=== PATIENT | male | born 1970 | race American Indian/Alaskan Native ===

== ENCOUNTER 2021-07-06 12:35 | Emergency (ER) | payer OTHER ==
[2021-07-06 13:11] VITALS: BP 174/99
[2021-07-06] MEDS ORDERED: SODIUM CHLORIDE 0.9% 1000 ML 1,000 ML IV ONE (13:42)
[2021-07-06] MEDS ORDERED: INSULIN REGULAR, HUMAN 100 UNITS/1 ML IV ONE ×2 (13:43→15:47)
[2021-07-06 14:59] LABS: Basophils # (Auto) 0.1 K/mm3 (0.0-0.1); Eosinophils # (Auto) 0.1 K/mm3 (0.0-0.4); Eosinophils % (Auto) 2.3 % (0.0-4.3); Hematocrit 42.2 % (35.5-45.6); Hemoglobin 13.9 gm/dl (11.8-15.2); Lymphocytes # (Auto) 1.5 K/mm3 (1.2-5.4); Mean Corpuscular HGB Conc 33 % (32-34); Mean Corpuscular Volume 86 fl (84-94); Monocytes # (Auto) 0.4 K/mm3 (0.0-0.8); Monocytes % (Auto) 7.9 % (0.0-7.3); Platelet Count 268 K/mm3 (140-440); Red Blood Count 4.92 M/mm3 (3.65-5.03)
[2021-07-06 15:16] LABS: Albumin 3.8 g/dL (3.9-5); Calcium 8.9 mg/dL (8.4-10.2)
--- NOTE | 2021-07-06 15:51 | Event Note ---
ED Screening Note ED Screening Note: Patient sent from his primary care doctor for elevated blood glucose Patient admits to history of diabetes and states he has been out of his Metformin for 2 days He also reports some dizziness He denies chest pain or shortness of breath No urinary symptoms per patient This initial assessment/diagnostic orders/clinical plan/treatment(s) is/are subject to change based on patients health status, clinical progression and re- assessment by fellow clinical providers in the ED. Further treatment and workup at subsequent clinical providers discretion. Patient/guardian urged not to elope from the ED as their condition may be serious if not clinically assessed and managed. Initial orders include: Labs Insulin Fluids EKG
[2021-07-06] MEDS ORDERED: LACTATED RINGERS 1,000 ML IV ONE (16:34)
--- NOTE | 2021-07-06 16:35 | Emergency Department Report ---
ED General Adult HPI - General Chief complaint: Hyperglycemia Stated complaint: HIGH BLOOD SUGAR PUI?: No Time Seen by Provider: 07/06/21 15:50 Source: patient, RN notes reviewed Mode of arrival: Ambulatory Limitations: No Limitations - History of Present Illness Initial comments: The patient was evaluated in the emergency department for symptoms described in the history of present illness. He/she was evaluated in the context of the global COVID-19 pandemic, which necessitated consideration that the patient might be at risk for infection with the virus that causes COVID-19. Institutional protocols and algorithms that pertain to the evaluation of patients at risk for COVID-19 are in a state of rapid change based on infor mation released by regulatory bodies including the CDC and federal and state organizations. These policies and algorithms were followed during the patient's care in the emergency department. Please note that these policies, procedures and recommendations changed on a rapid basis. Primary CARE doctor: Dr. Mcclain The patient is a 50-year-old gentleman with a history of hypertension and diabetes, currently maintained on amlodipine and Metformin. He ran out of his Metformin a few days ago. He also reports recently indulging in consumption of sweetened drinks. He saw his outpatient primary care doctor for complaint of weakness, and polydipsia, and was found to have high blood sugar. He was referred to the emergency room. He reports that he takes Metformin but he does not know what dose he gets. He denies headache, neck pain, chest pain, abdominal pain, shortness of breath dysuria testicular pain. He does endorse urinary frequency. No cough. He complains of generalized weakness. He denies ataxia and unsteady gait -: Gradual Consistency: constant Improves with: rest Worsens with: movement - Related Data Previous Rx's Medication Instructions Recorded Last Taken Type metFORMIN [Glucophage] 500 mg PO BID #60 tab 07/06/21 Unknown Rx Allergies Allergy/AdvReac Type Severity Reaction Status Date / Time No Known Allergies Allergy Unverified 07/06/21 13:03 ED Review of Systems ROS: Stated complaint: HIGH BLOOD SUGAR Other details as noted in HPI Constitutional: malaise, weakness. denies: fever Eyes: denies: eye discharge, vision change ENT: denies: epistaxis Respiratory: denies: cough Cardiovascular: denies: chest pain Gastrointestinal: denies: abdominal pain, vomiting, diarrhea Genitourinary: frequency. denies: dysuria Neurological: weakness. denies: headache ED Past Medical Hx - Past Medical History Hx Hypertension: Yes Hx Diabetes: Yes - Surgical History Additional Surgical History: EYE - Medications Home Medications: Home Medications Medication Instructions Recorded Confirmed Last Taken Type metFORMIN [Glucophage] 500 mg PO BID #60 tab 07/06/21 Unknown Rx ED Physical Exam - General Limitations: No Limitations General appearance: alert, in no apparent distress - Head Head exam: Present: atraumatic, normocephalic - Eye Eye exam: Present: normal appearance, PERRL, EOMI, other (Visual acuity intact to finger counting, color perception, reading at a close distance). Absent: nystagmus - ENT ENT exam: Present: normal exam, normal orophraynx, mucous membranes moist, normal external ear exam - Neck Neck exam: Present: normal inspection, full ROM. Absent: tenderness, meningismus - Respiratory Respiratory exam: Present: normal lung sounds bilaterally. Absent: respiratory distress, wheezes, rales, rhonchi, stridor, decreased breath sounds - Cardiovascular Cardiovascular Exam: Present: regular rate, normal rhythm, normal heart sounds. Absent: bradycardia, tachycardia, irregular rhythm, systolic murmur, diastolic murmur, rubs, gallop - GI/Abdominal GI/Abdominal exam: Present: soft. Absent: distended, tenderness, guarding, rebound, rigid, pulsatile mass - Rectal Rectal exam: Present: deferred - Extremities Exam Extremities exam: Present: normal inspection, full ROM, other (2+ pulses noted in the bilateral upper and lower extremities. There is no palpable cord. negative Homans sign. Muscular compartments are soft. The pelvis is stable.). Absent: pedal edema, calf tenderness - Back Exam Back exam: Present: normal inspection, full ROM. Absent: tenderness, CVA tenderness (R), CVA tenderness (L), paraspinal tenderness, vertebral tenderness - Neurological Exam Neurological exam: Present: alert, oriented X3, normal gait, other (No facial droop. Tongue midline. Extraocular movements intact bilaterally. Facial sensation intact to light touch in V1, V2, V3 distribution bilaterally. 5 and a 5 strength in 4 extremities. Sensation intact to light touch in 4 extremities.). Absent: motor sensory deficit - Psychiatric Psychiatric exam: Present: normal affect, normal mood - Skin Skin exam: Present: warm, dry, intact, normal color. Absent: rash ED Course Vital Signs 07/06/21 13:08 Temperature 98.3 F Pulse Rate 83 Respiratory 20 Rate Blood Pressure 174/99 O2 Sat by Pulse 99 Oximetry - Reevaluation(s) Reevaluation #1: 07/06/21 17:59 Differential diagnosis, including but not limited to: Hyperglycemia, dehydra tion, diabetic ketoacidosis, chronic hypertension, noncompliance, medication refill Assessment and plan: 50-year-old gentleman, who is afebrile, with reassuring vital signs with exception of chronic hypertension (please reference the [employer] clinical policy on asymptomatic hypertension; patient has his amlodipine at the bedside), presenting to the ER today with symptomatic hyperglycemia. Laboratory studies demonstrate dehydration, hyperglycemia, pseudohyponatremia, without anion gap acidosis. Patient is awake, alert, oriented, ambulatory with a steady gait with a GCS of 15, and an NIH score of 0. During my initial evaluation, the patient is resting comfortably on a chair, and in no acute distress. He is medicated with insulin, fluids, we will refill Metformin, he is counseled to avoid diet and lifestyle indiscretions. Outpatient follow-up with primary care for chronic hyperglycemia. We are currently awaiting Accu-Chek 07/06/21 18:41 Glucose is markedly improved at 346. Patient making multiple requests to leave. He also states that he is going to eat. Hyperglycemia is likely a manifestation of dietary noncompliance, and medication noncompliance. Patient awake, alert, oriented, sober, ambulatory with a steady gait, without encephalopathy, or metabolic acidosis or anion gap acidosis. Patient will need to engage in diet and lifestyle modifications to control his hyperglycemia. He can do this as an outpatient. ED Medical Decision Making - Lab Data Result diagrams: 07/06/21 14:32 07/06/21 14:32 Vital Signs 07/06/21 13:08 Temperature 98.3 F Pulse Rate 83 Respiratory 20 Rate Blood Pressure 174/99 O2 Sat by Pulse 99 Oximetry Lab Results 07/06/21 07/06/21 07/06/21 Range/Units 13:09 14:32 14:32 WBC 5.3 (4.5-11.0) K/mm3 RBC 4.92 (3.65-5.03) M/mm3 Hgb 13.9 (11.8-15.2) gm/dl Hct 42.2 (35.5-45.6) % MCV 86 (84-94) fl MCH 28 (28-32) pg MCHC 33 (32-34) % RDW 13.0 L (13.2-15.2) % Plt Count 268 (140-440) K/mm3 Lymph % (Auto) 29.0 (13.4-35.0) % [place] % (Auto) 7.9 H (0.0-7.3) % Eos % (Auto) 2.3 (0.0-4.3) % Baso % (Auto) 1.0 (0.0-1.8) % Lymph # (Auto) 1.5 (1.2-5.4) K/mm3 [place] # (Auto) 0.4 (0.0-0.8) K/mm3 Eos # (Auto) 0.1 (0.0-0.4) K/mm3 Baso # (Auto) 0.1 (0.0-0.1) K/mm3 Seg Neutrophils % 59.8 (40.0-70.0) % Seg Neutrophils # 3.2 (1.8-7.7) K/mm3 VBG pH (7.320-7.420) Sodium 125 L (137-145) mmol/L Potassium 4.4 (3.6-5.0) mmol/L Chloride 90.1 L (98-107) mmol/L Carbon Dioxide 23 (22-30) mmol/L Anion Gap 16 mmol/L BUN 26 H (9-20) mg/dL Creatinine 1.7 H (0.8-1.3) mg/dL Estimated GFR 43 ml/min BUN/Creatinine Ratio 15 % Glucose 815 H* (75-100) mg/dL POC Glucose > 600 H (70-105) mg/dL Calcium 8.9 (8.4-10.2) mg/dL Total Bilirubin 0.30 (0.1-1.2) mg/dL AST 26 (5-40) units/L ALT 44 (7-56) units/L Alkaline Phosphatase 167 H (35-129) units/L Troponin T (0.00-0.029) ng/mL Total Protein 6.9 (6.3-8.2) g/dL Albumin 3.8 L (3.9-5) g/dL Albumin/Globulin Ratio 1.2 % 07/06/21 07/06/21 Range/Units 14:32 14:32 WBC (4.5-11.0) K/mm3 RBC (3.65-5.03) M/mm3 Hgb (11.8-15.2) gm/dl Hct (35.5-45.6) % MCV (84-94) fl MCH (28-32) pg MCHC (32-34) % RDW (13.2-15.2) % Plt Count (140-440) K/mm3 Lymph % (Auto) (13.4-35.0) % [place] % (Auto) (0.0-7.3) % Eos % (Auto) (0.0-4.3) % Baso % (Auto) (0.0-1.8) % Lymph # (Auto) (1.2-5.4) K/mm3 [place] # (Auto) (0.0-0.8) K/mm3 Eos # (Auto) (0.0-0.4) K/mm3 Baso # (Auto) (0.0-0.1) K/mm3 Seg Neutrophils % (40.0-70.0) % Seg Neutrophils # (1.8-7.7) K/mm3 VBG pH 7.421 H (7.320-7.420) Sodium (137-145) mmol/L Potassium (3.6-5.0) mmol/L Chloride (98-107) mmol/L Carbon Dioxide (22-30) mmol/L Anion Gap mmol/L BUN (9-20) mg/dL Creatinine (0.8-1.3) mg/dL Estimated GFR ml/min BUN/Creatinine Ratio % Glucose (75-100) mg/dL POC Glucose (70-105) mg/dL Calcium (8.4-10.2) mg/dL Total Bilirubin (0.1-1.2) mg/dL AST (5-40) units/L ALT (7-56) units/L Alkaline Phosphatase (35-129) units/L Troponin T 0.017 (0.00-0.029) ng/mL Total Protein (6.3-8.2) g/dL Albumin (3.9-5) g/dL Albumin/Globulin Ratio % - EKG Data -: EKG Interpreted by Me EKG shows normal: sinus rhythm Rate: normal - EKG Data When compared to previous EKG there are: previous EKG unavailable 07/06/21 17:58 The EKG is interpreted by myself at 17: 30 Sinus rhythm, rate 66 bpm. Normal axis, normal P wave axis, QTC 435 ms. Left ventricular hypertrophy/high left ventricular voltage. Nonspecific T wave abnormalities related to repolarization abnormality and high left ventricular voltage. This is an abnormal EKG. This is not a STEMI Critical Care Time: Yes Critical care time in (mins) excluding proc time.: 35 Critical care attestation.: If time is entered above; I have spent that time in minutes in the direct care of this critically ill patient, excluding procedure time. ED Disposition Clinical Impression: Hyperglycemia, Medication refill, Elevated blood pressure reading, Dehydration Disposition: 01 HOME / SELF CARE / HOMELESS Is pt being admited?: No Does the pt Need Aspirin: No Condition: Good Additional Instructions: Recommend that patient consume 4 to 6 cups of water per day indefinitely. For the time being, do not take Motrin, ibuprofen, Naprosyn, Aleve. Recommend that patient consume a diabetic appropriate diet, and avoid consumption of sugar, starch, alcohol, processed foods. Patient may reference the [employer] website for instructions on how to construct a diabetic appropriate diet. Patient will receive a 1 month refill and Metformin prescription. Patient should also remain compliant with his Norvasc/amlodipine/blood pressure medication. Long-term complications of poorly controlled diabetes and hypertension include stroke, heart attack, disability, and loss of quality of life. We do recommend follow-up with your primary care doctor within the next 7 to 10 days for repeat checkup and evaluation. Please return to the emergency room right away with new pain, worsened pain, migration of pain, projectile vomiting, change in mental status, confusion, inab ility tolerate liquid feeds, new, worsened or different symptoms not present on the initial emergency room evaluation Prescriptions: metFORMIN [Glucophage] 500 mg PO BID #60 tab Referrals: MICHAEL MCCLAIN MD [Primary Care Provider] - 3-5 Days Forms: Work/School Release Form(ED)
--- NOTE | 2021-07-07 10:00 | Electrocardiograph Report ---
[facility] Test Date: 2021-07-06 Test Time: 17:30:20 Pat Name: LORENZO SEGAL Department: Room: Gender: M Referral Manager: JADYN : [id number] Requested By: FELI MCBRIDE Order Number: [id number] Reading MD: Collins Orozco Measurements Intervals [place] Rate: 66 P: 78 TN: 174 QRS: 63 QRSD: 83 T: 221 QT: 416 QTc: 435 Interpretive Statements Sinus rhythm Probable left atrial enlargement LVH with secondary repolarization abnormality ST elevation secondary to LVH No previous ECG available for comparison Electronically Signed On 07-07-2021 10:00:20 EST by Collins Orozco
== END 2021-07-07 00:05 | disposition home or self-care (01) ==
LOC: ED 12:35
DX: E11.65 Type 2 diabetes mellitus with hyperglycemia (principal); I10 Essential (primary) hypertension; E86.0 Dehydration; Z76.0 Encounter for issue of repeat prescription
CPT/HCPCS: 36415; 80053; 82805; 82962; 84484; 85025; 93005; 93010; 96361; 96374; 99283; J7030; Q0162; Q9967; J1815